=== PATIENT | female | born 1990 | race Caucasian/White ===

== ENCOUNTER 2019-05-30 18:28 | Emergency (ER) | payer BC ==
[~2019-05-30] VITALS: Ht 167.6 cm; Wt 68.2 kg
[2019-05-30 18:39] VITALS: BP 145/79; TEMP 98.8
[2019-05-30] MEDS ORDERED: PRENATAL TABLET PO (19:29)
[2019-05-30 20:09] LABS: COLLECTION METHOD CLEAN CATCH
[2019-05-30 20:20] LABS: MUCOUS Present /lpf; PH 6 (5-8); SQUAMOUS EPITHELIAL 0-2 /hpf; URINE APPEARANCE Clear; URINE BACTERIA Rare /hpf; URINE BILIRUBIN Negative (NEGATIVE); URINE BLOOD Negative (NEGATIVE); URINE COLOR Yellow; URINE GLUCOSE Negative (NEGATIVE); URINE KETONE Negative (NEGATIVE); URINE LEUKOCYTE ESTERASE Negative (NEGATIVE); URINE NITRATE Negative (NEGATIVE); URINE PROTEIN(semi-quant) Negative (NEGATIVE); URINE RBC 0-2 /hpf
[2019-05-30 21:03] VITALS: PULSE 75
== END 2019-05-30 21:03 | disposition home or self-care (01) ==
LOC: COL.ER 18:28
PROVIDERS: Emergency Medicine
DX: O98.511 Other viral diseases complicating pregnancy, first trimester (principal); B34.9 Viral infection, unspecified; Z3A.10 10 weeks gestation of pregnancy

== ENCOUNTER → 2019-12-21 | Outpatient (CLI) | payer BC ==
[~2019-12-21] MED LIST: IBU600 MG PO; PERCOCET 325 MG1 TA2 PO; PRENATAL TABLET PO
== END | disposition still patient (30) ==
LOC: ZCOL.LAB 08:00
DX: Z20.828 Contact with and (suspected) exposure to other viral communicable diseases (principal)

== ENCOUNTER 2019-12-25 14:05 | Inpatient (IN) | payer BC ==
[~2019-12-25] VITALS: Ht 167.6 cm; Wt 84.5 kg
[~2019-12-25 14:05] MED LIST changes: -IBU600 MG PO; -PERCOCET 325 MG1 TA2 PO
[2019-12-26] VITALS (18 sets, daily range): BP systolic 98–142; BP diastolic 58–81; PULSE 59–87; TEMP 97.9–98.6
--- NOTE | 2019-12-26 10:05 | NUR ---
PATIENT HERE FOR PRIMARY SECTION. PATIENT CHANGED INTO GOWN, ON EFM, VITALS OBTAINED. ASSESMENT COMPLETE, IV STARTED. REPORT GIVEN TO BEATRIZ AT [id number]
[2019-12-26 11:07] LABS: BASO % 0.4 % (0.0-2.0); EOS # 0.1 (0.0-0.7); GRAN # 7.6 (1.4-6.5); GRAN % 71.4 % (42.2-75.2); HEMOGLOBIN 11.4 g/dl (12.5-16.0); LYMPH # 2.2 (1.2-3.4); LYMPH % 20.7 % (20.0-51.0); MEAN CELL VOLUME 87 fl (80.0-100.0); MEAN CORPUSCULAR HEMOGLOBIN 29 pg (27.0-31.0); MEAN CORPUSCULAR HGB CONC 33 g/dl (33.0-37.0); MEAN PLATELET VOLUME 10.7 fl (7.4-10.4); MONO # 0.6 (0.1-0.6); MONO % 5.8 % (1.7-9.3); PLATELET COUNT 263 K/mm3 (130-400); RED BLOOD COUNT 3.95 M/mm3 (4.10-5.30); REDCELL DISTRIBUTION WIDTH-CV 12.6 % (11.5-14.5)
[2019-12-26 11:10] LABS: HEMATOCRIT 34.5 % (37.0-47.0)
[2019-12-26 11:31] LABS: COLLECTION METHOD CLEAN CATCH
[2019-12-26 11:49] LABS: PH 6 (5-8); SQUAMOUS EPITHELIAL 0-2 /hpf; URINE APPEARANCE Clear; URINE BACTERIA None Seen /hpf; URINE BILIRUBIN Negative (NEGATIVE); URINE BLOOD 1+ (NEGATIVE); URINE COLOR Yellow; URINE GLUCOSE Negative (NEGATIVE); URINE KETONE Negative (NEGATIVE); URINE LEUKOCYTE ESTERASE Negative (NEGATIVE); URINE NITRATE Negative (NEGATIVE); URINE PROTEIN(semi-quant) Negative (NEGATIVE); URINE RBC 0-2 /hpf; URINE UROBILINOGEN Negative (NEGATIVE); URINE WBC 0-2 /hpf
[2019-12-27 04:12] VITALS: BP 101/46; PULSE 62; TEMP 98.6
[2019-12-27 07:22] LABS: HEMATOCRIT 30.2 % (37.0-47.0); HEMOGLOBIN 9.8 g/dl (12.5-16.0)
[2019-12-27 07:45] VITALS: BP 100/60; PULSE 78; TEMP 97.4
[2019-12-27] MEDS ORDERED: IBU600 MG PO (08:26)
[2019-12-27] MEDS ORDERED: PERCOCET 325 MG1 TA2 PO (08:26)
--- NOTE | 2019-12-27 09:03 | NUR ---
Initial visit; Parents thanked Jailkeeper for offering congratulations and God's blessings for the of their son. Jailkeeper thanked family for choosing [place].
[2019-12-27 17:31] VITALS: BP 126/68; PULSE 72; TEMP 97.8
[2019-12-27 20:40] VITALS: BP 118/70; PULSE 82; TEMP 97.8
[2019-12-28 08:15] VITALS: BP 127/78; PULSE 80; TEMP 97.9
== END 2019-12-28 12:30 | disposition home or self-care (01) | DRG 788 ==
LOC: OB 14:05
PROVIDERS: ADMIT Obstetrics & Gynecology
PROC: 10D00Z1 Extraction of Products of Conception, Low, Open Approach (ICD-10-PCS; principal; 2019-12-26)
DX: O13.4 Gestational [pregnancy-induced] hypertension without significant proteinuria, complicating childbirth (principal); Z3A.39 39 weeks gestation of pregnancy; Z37.0 Single live birth; O32.1XX0 Maternal care for breech presentation, not applicable or unspecified; O99.02 Anemia complicating childbirth
CPT/HCPCS: J0690; J1885; J2175; J2370; J2405; J2590; J3010; J7120

== ENCOUNTER 2019-12-25 18:34 | Outpatient (CLI) | payer BC ==
[2019-12-25] VITALS (7 sets, daily range): BP systolic 111–134; BP diastolic 60–75; PULSE 67–81; TEMP 98.4
--- NOTE | 2019-12-25 18:45 | NUR ---
G1 at 39 weeks and 5 days arrives to unit ambulatory for PIH workup. Dr. Bauer called over orders to obtain CBC, CMP, and UA and serial BPs on admission. Pt oriented to room, call light within reach, bed in low and locked position. Pt changed into clean gown. US and toco explained and applied. Pt reports feeling good movement, denies contractions, or vaginal bleeding. Pt states she was checked in the office earlier today and SVE was closed. Pt denies headaches, blurry vision, or RUQ pain. Vital signs obtained. Plan of care reviewd with patient. Admission assessment started.
--- NOTE | 2019-12-25 19:40 | NUR ---
Dr. Bauer at bedside with BSUS. Breech position confirmed. Plan of care reviewed. Plan to schedule section 12/25 as long as labs result within normal limits.
[2019-12-25 19:52] LABS: COLLECTION METHOD CLEAN CATCH
[2019-12-25 19:59] LABS: BASO % 0.3 % (0.0-2.0); EOS # 0.1 (0.0-0.7); EOS % 0.8 % (0-4.0); GRAN # 8.1 (1.4-6.5); GRAN % 70.3 % (42.2-75.2); LYMPH # 2.5 (1.2-3.4); LYMPH % 21.8 % (20.0-51.0); MEAN CELL VOLUME 88 fl (80.0-100.0); MEAN CORPUSCULAR HEMOGLOBIN 29 pg (27.0-31.0); MEAN CORPUSCULAR HGB CONC 33 g/dl (33.0-37.0); MEAN PLATELET VOLUME 10.3 fl (7.4-10.4); MONO # 0.7 (0.1-0.6); PLATELET COUNT 258 K/mm3 (130-400); RED BLOOD COUNT 3.83 M/mm3 (4.10-5.30); REDCELL DISTRIBUTION WIDTH-CV 12.6 % (11.5-14.5)
[2019-12-25 20:02] LABS: MUCOUS Present /lpf; PH 7 (5-8); SQUAMOUS EPITHELIAL 0-2 /hpf; URINE APPEARANCE Clear; URINE BACTERIA None Seen /hpf; URINE BILIRUBIN Negative (NEGATIVE); URINE BLOOD Negative (NEGATIVE); URINE COLOR Yellow; URINE GLUCOSE Negative (NEGATIVE); URINE KETONE Negative (NEGATIVE); URINE LEUKOCYTE ESTERASE Negative (NEGATIVE); URINE NITRATE Negative (NEGATIVE); URINE PROTEIN(semi-quant) Negative (NEGATIVE); URINE RBC 0-2 /hpf; URINE UROBILINOGEN Negative (NEGATIVE); URINE WBC 0-2 /hpf
[2019-12-25 20:07] LABS: ALBUMIN 3.6 gm/dL (3.5-5.0); BILIRUBIN,TOTAL 0.1 mg/dL (0.0-1.0); CALCIUM 8.5 mg/dL (8.4-10.2); CREATININE, serum 0.59 (0.52-1.25); POTASSIUM 3.9 mmol/L (3.4-5.0); TOTAL PROTEIN 6.4 gm/dL (6.4-8.2)
[2019-12-25 20:41] LABS: HEMATOCRIT 33.5 % (37.0-47.0)
--- NOTE | 2019-12-25 20:50 | NUR ---
Dr. Bauer at bedside discussing discharge plan with patient and spouse. All questions answered.
--- NOTE | 2019-12-25 21:05 | NUR ---
Discharge instructions reviewed with patient and spouse, verbalized understanding. Pt seen ambulating of unit with spouse and belongings.
== END 2019-12-25 21:05 | disposition home or self-care (01) ==
LOC: LDRO 18:34
PROVIDERS: Obstetrics & Gynecology
DX: O13.3 Gestational [pregnancy-induced] hypertension without significant proteinuria, third trimester (principal); Z3A.39 39 weeks gestation of pregnancy

== ENCOUNTER 2021-12-23 06:43 | Inpatient (IN) | payer OTHER ==
[~2021-12-23] VITALS: Ht 167.7 cm; Wt 77.7 kg
[2021-12-23] VITALS (18 sets, daily range): BP systolic 84–122; BP diastolic 26–68; PULSE 57–97; TEMP 98.2–98.5
[~2021-12-23 06:43] MED LIST changes: +IBU600 MG PO; +PERCOCET 325 MG1 TA2 PO
[2021-12-23] MEDS ORDERED: NATURAL IRON65 MG (09:51)
[2021-12-23] MEDS ORDERED: COLACE 100100 MG/CAP PO (09:51)
[2021-12-23 10:30] LABS: BASO % 0.2 % (0.0-2.0); EOS # 0.1 K/mm3 (0.0-0.7); EOS % 0.8 % (0.0-4.0); GRAN # 6.9 K/mm3 (1.4-6.5); GRAN % 69.9 % (42.2-75.2); HEMOGLOBIN 10.8 g/dl (12.5-16.0); LYMPH # 2.1 K/mm3 (1.2-3.4); LYMPH % 21.6 % (20.0-51.0); MEAN CELL VOLUME 86 fl (80.0-100.0); MEAN CORPUSCULAR HEMOGLOBIN 29 pg (27-31); MEAN CORPUSCULAR HGB CONC 34 g/dl (33.0-37.0); MEAN PLATELET VOLUME 10.3 fl (7.4-10.4); MONO # 0.6 K/mm3 (0.1-0.6); MONO % 6.4 % (1.7-9.3); PLATELET COUNT 242 K/mm3 (130-400); RED BLOOD COUNT 3.72 M/mm3 (4.10-5.30)
[2021-12-23 10:31] LABS: HEMATOCRIT 32.1 % (37.0-47.0)
--- NOTE | 2021-12-23 10:36 | NUR ---
0938- Pt arrives ambulatory with spouse for scheduled repeat section. Pt and spouse oriented to room. Pt into bathroom to change into gown. 42- Pt into bed, EFM and TOCO on. VSS 43- Tracing not recording on strip, changed setting to record, tracing well. Pt denies VB/LOC/UC. Pt states she has had some irregular cramping over the past week but nothing currently. +FM per Pt. Assessments completed.
--- NOTE | 2021-12-23 12:30 | NUR ---
1230- Quarter sized clot noted with massage, minimal free-flow bleeding noted.
[2021-12-24 01:15] VITALS: BP 118/69; PULSE 78; TEMP 98.1
[2021-12-24 06:10] LABS: HEMATOCRIT 30.3 % (37.0-47.0)
[2021-12-24 08:00] VITALS: BP 106/64; PULSE 58; TEMP 97.8
[2021-12-24] MEDS ORDERED: IBU600 MG PO (08:11)
[2021-12-24] MEDS ORDERED: PERCOCET 325 MG1 TA2 PO (08:11)
--- NOTE | 2021-12-24 08:55 | NUR ---
Initial visit; Parents thanked [employer] for offering congratulations and God's blessings for the of their daughter. [employer] thanked family for choosing [facility].
--- NOTE | 2021-12-24 13:10 | NUR ---
1310 REPORT GIVEN TO NELL POLO TO ASSUME CARE
[2021-12-24 16:50] VITALS: BP 110/61; PULSE 62; TEMP 97.5
[2021-12-24 20:57] VITALS: BP 117/64; PULSE 73; TEMP 98
[2021-12-25 07:15] VITALS: BP 111/51; PULSE 72; TEMP 97.6
== END 2021-12-25 11:00 | disposition home or self-care (01) | DRG 788 ==
LOC: OB 06:43
PROVIDERS: ADMIT Obstetrics & Gynecology
PROC: 10D00Z1 Extraction of Products of Conception, Low, Open Approach (ICD-10-PCS; principal; 2021-12-23)
DX: O36.5990 Maternal care for other known or suspected poor fetal growth, unspecified trimester, not applicable or unspecified (principal); O99.02 Anemia complicating childbirth; D64.9 Anemia, unspecified; Z3A.39 39 weeks gestation of pregnancy; Z37.0 Single live birth; Z86.16 Personal history of COVID-19
CPT/HCPCS: J0171; J0690; J1100; J1885; J2370; J2405; J2590; J7120